=== PATIENT | female | born 1995 | race Caucasian/White ===

== ENCOUNTER → 2017-09-18 11:39 | Outpatient (CLI) | payer BC, SELFPAY ==
[2017-09-18 13:55] LABS: hCG Titer Quant., Serum < 1 mIU/mL (<9 non-preg)
[2017-09-25 12:50] LABS: HPV HC, High Risk Negative (Negative); HPV Reflexed? YES, CHARGE PATIENT
== END ==
PROVIDERS: Visit Provider Obstetrics & Gynecology
DX: Z12.4 Encounter for screening for malignant neoplasm of cervix (principal); N92.6 Irregular menstruation, unspecified
CPT/HCPCS: 36415; 84702; 87624; 88175; G0145

== ENCOUNTER → 2018-02-05 15:47 | Outpatient (CLI) | payer BC, SELFPAY ==
[2018-02-11 11:24] LABS: HPV Reflexed? NOT INDICATED
== END ==
PROVIDERS: Visit Provider Obstetrics & Gynecology
DX: Z12.4 Encounter for screening for malignant neoplasm of cervix (principal)
CPT/HCPCS: 88175; G0145